=== PATIENT | male | born 1955 | race Caucasian/White ===

== ENCOUNTER → 2017-09-15 | Outpatient (CLI) | payer OTHER ==
--- NOTE | 2017-09-15 10:05 | REP ---
Low-dose screening CT study of the chest without contrast: History: Nicotine dependence. Comparison screening chest CT study is from May 11, 2016. CT findings: The lungs are symmetrically aerated and clear. No pulmonary nodule, mass, or infiltrate is seen. No pleural effusion is evident. Impression: Negative low-dose lung cancer screening chest CT study. Signed by Mitch Cobb MD 09/15/2017 01:17 P
== END ==
LOC: M RAD 09:07
PROVIDERS: ATTEND Family Medicine
DX: Z87.891 Personal history of nicotine dependence (principal)

== ENCOUNTER → 2017-09-20 | Outpatient (REF) | payer OTHER | LOC: M LAB REF 16:12 | PROVIDERS: ATTEND Physician Assistant | DX: L02.212 Cutaneous abscess of back [any part, except buttock and flank] (principal) ==

== ENCOUNTER → 2018-04-11 | Outpatient (REF) | payer OTHER ==
[2018-04-11 18:54] LABS: LIPASE 121 U/L (73-393)
[2018-04-11 18:54] LABS: AMYLASE 46 U/L (25-115)
== END ==
LOC: M LAB REF 17:14
DX: R19.4 Change in bowel habit (principal)
CPT/HCPCS: 82150

== ENCOUNTER → 2018-04-18 | Outpatient (CLI) | payer OTHER | LOC: M WUC 08:34 | DX: R07.9 Chest pain, unspecified (principal) ==

== ENCOUNTER → 2018-04-21 | Outpatient (REF) | payer OTHER ==
[2018-04-21 14:49] LABS: INR 0.92; PROTHROMBIN TIME 12.4 SECONDS (12.4-14.5)
[2018-04-21 14:50] LABS: PARTIAL THROMBOPLASTIN TIME 32.1 SECONDS (26.8-37.9)
== END ==
LOC: M LAB REF 14:17
DX: Z01.818 Encounter for other preprocedural examination (principal)

== ENCOUNTER → 2018-05-01 | Outpatient (CLI) | payer OTHER ==
[~2018-05-01] MED LIST: LIDOCAINE 1% MDV 20ML VIAL As Ordered
== END ==
LOC: M RADPRO 08:14
DX: C22.8 Malignant neoplasm of liver, primary, unspecified as to type (principal); Z79.82 Long term (current) use of aspirin; Z79.899 Other long term (current) drug therapy
CPT/HCPCS: 47000

== ENCOUNTER → 2018-05-10 | Outpatient (REF) | payer OTHER ==
[2018-05-12 10:51] LABS: HEPATITIS B SURFACE ANTIGEN NEGATIVE (NEGATIVE)
[2018-05-12 11:00] LABS: ALPHA FETOPROTEIN TUMOR QUANT 8385.5 NG/ML (<8.1)
[2018-05-12 11:10] LABS: HEPATITIS B CORE ANTIBODY IGM NEGATIVE (NEGATIVE)
== END ==
LOC: M LAB REF 17:17
DX: C22.8 Malignant neoplasm of liver, primary, unspecified as to type (principal)

== ENCOUNTER → 2018-05-25 | Outpatient (CLI) | payer OTHER ==
[~2018-05-25] MED LIST changes: +ISOVUE-370 76% 100ML VIAL (Q9967) As Ordered; -LIDOCAINE 1% MDV 20ML VIAL As Ordered
== END ==
LOC: M RAD 14:32
DX: C22.0 Liver cell carcinoma (principal)
CPT/HCPCS: Q9967

== ENCOUNTER → 2018-07-04 | Outpatient (REF) | payer OTHER ==
[2018-07-04 23:23] LABS: ALPHA FETOPROTEIN TUMOR QUANT 16761.8 NG/ML (<8.1)
== END ==
LOC: M LAB REF 12:16
DX: D37.6 Neoplasm of uncertain behavior of liver, gallbladder and bile ducts (principal)

== ENCOUNTER 2018-07-27 18:45 | Emergency (ER) | payer OTHER ==
[2018-07-27 20:18] LABS: BASO % 0.6 % (0.0-1.0); EOS # 0.1 10^3/uL (0.0-0.50); HEMATOCRIT 41.7 % (42.0-52.0); HEMOGLOBIN 14.2 g/dl (13.5-17.5); IMMATURE GRANULOCYTE % 1.2 % (0-3.0); LYMPH # 0.5 10^3/uL (1.5-4.5); LYMPH % 10.5 % (24.0-44.0); MEAN CORPUSCULAR HEMOGLOBIN 29.2 pg (27.0-33.0); MEAN CORPUSCULAR HGB CONC 34.1 g/dl (32.0-36.5); MEAN CORPUSCULAR VOLUME 85.6 fl (80.0-96.0); MONO # 0.5 10^3/uL (0.0-0.8); MONO % 9.1 % (0.0-5.0); NEUTROPHILS # 3.9 10^3/uL (1.8-7.7); NEUTROPHILS % 77.6 % (36.0-66.0); PLATELET COUNT, AUTOMATED 293 10^3/uL (150-450); RED BLOOD COUNT 4.87 10^6/uL (4.30-6.10); RED CELL DISTRIBUTION WIDTH 24.8 % (11.5-14.5); WHITE BLOOD COUNT 5.1 10^3/uL (4.0-10.0)
[2018-07-27] MEDS: NS 1,000 ML IV (20:20)
[2018-07-27] MEDS: ONDANSETRON 4MG/2ML VIAL (J2405) IV (20:20)
[2018-07-27 20:29] LABS: LACTIC ACID SEPSIS PROTOCOL 1.5 MMOL/L (0.4-2.0)
[2018-07-27 20:31] LABS: ALBUMIN 1.6 GM/DL (3.2-5.2); ALBUMIN/GLOBULIN RATIO 0.28 (1.00-1.93); ALKALINE PHOSPHATASE 351 U/L (45-117); ALT/SGPT 177 U/L (12-78); ANION GAP 19 MEQ/L (8-16); AST/SGOT 1681 U/L (7-37); BILIRUBIN,DIRECT 5.4 MG/DL (0.0-0.2); BILIRUBIN,TOTAL 6.9 MG/DL (0.2-1.0); BLOOD UREA NITROGEN 30 MG/DL (7-18); CALCIUM LEVEL 8.8 MG/DL (8.8-10.2); CARBON DIOXIDE LEVEL 21 MEQ/L (21-32); CHLORIDE LEVEL 92 MEQ/L (98-107); CREATININE FOR GFR 1.26 MG/DL (0.70-1.30); GLOMERULAR FILTRATION RATE > 60.0 (>49); GLUCOSE, FASTING 70 MG/DL (70-100); LIPASE 136 U/L (73-393); POTASSIUM SERUM 4.9 MEQ/L (3.5-5.1); SODIUM LEVEL 132 MEQ/L (136-145); TOTAL PROTEIN 7.3 GM/DL (6.4-8.2)
[2018-07-27] MEDS ORDERED: ISOVUE-370 76% 100ML VIAL (Q9967) As Ordered (21:23)
[2018-07-27 21:49] LABS: AMMONIA 84 uMOL/L (<32)
[2018-07-27 22:29] LABS: INR 1.13; PROTHROMBIN TIME 14.7 SECONDS (12.1-14.4)
[2018-07-27 22:30] LABS: PARTIAL THROMBOPLASTIN TIME 40.5 SECONDS (25.4-37.6)
== END 2018-07-27 23:43 | disposition home or self-care (01) ==
LOC: M ED 18:45
DX: I26.99 Other pulmonary embolism without acute cor pulmonale (principal); E72.20 Disorder of urea cycle metabolism, unspecified; R74.0 Nonspecific elevation of levels of transaminase and lactic acid dehydrogenase [LDH]; Z85.05 Personal history of malignant neoplasm of liver; Z92.21 Personal history of antineoplastic chemotherapy; Z79.899 Other long term (current) drug therapy; Z79.82 Long term (current) use of aspirin
CPT/HCPCS: J2405